=== PATIENT | female | born 1960 | race Caucasian/White ===

== ENCOUNTER 2021-10-13 14:28 | Emergency (ER) | payer BC, SELFPAY ==
--- NOTE | ~2021-10-13 | XR_ITS ---
EXAM: XR wrist RT w scaphoid HISTORY: medial LT wrist pain and swelling after a fall COMPARISON: None available FINDINGS: Decreased mineralization. Comminuted, intra-articular fracture of the proximal right fifth metacarpal with slight anteromedial dislocation of the proximal fifth metacarpal. No other fracture or dislocation. No lytic or blastic lesion. Joint spaces maintained. No erosion or periosteal change. Soft tissue swelling over the fracture, otherwise within normal limits. IMPRESSION: Comminuted, intra-articular fracture dislocation of the proximal right fifth metacarpal. Reviewed, dictated and finalized at location [facility]. IMPRESSION: Comminuted, intra-articular fracture dislocation of the proximal right fifth me tacarpal.
[2021-10-13 14:50] VITALS: BP 115/62; PULSE 82; RESP 20; TEMP 37.1; O2SAT 98
--- NOTE | 2021-10-13 15:02 | ED.GENADULT ---
HPI - General Adult General Chief complaint: Extremity Injury, Upper Stated complaint: right hand wrist injury Source: patient and family Mode of arrival: ambulatory Limitations: no limitations History of Present Illness HPI narrative: Christine was traveling through town when she fell at a restaurant on her right wrist. She had immediate pain and swelling but no other injuries. Related Data Allergies Allergy/AdvReac Type Severity Reaction Status Date / Time codeine AdvReac Headache Verified 10/13/21 15:04 promethazine [From Phenergan] AdvReac Other Verified 10/13/21 15:19 Review of Systems Constitutional: Constitutional: Reports no additional constitutional complaints Eyes: Eyes: Reports no additional eye complaints ENT: Reports system reviewed and no additional complaints, except as documented Cardiovascular: Cardiovascular: Reports no additional cardiovascular complaints Respiratory: Respiratory: Reports no additional respiratory complaints Gastrointestinal: Gastrointestinal: Reports no additional gastrointestinal complaints Genitourinary: Genitourinary: Reports no additional female genitourinary complaints Musculoskeletal: Musculoskeletal: Reports as per HPI Integumentary/Breasts: Skin/Breast: Reports system reviewed and no additional complaints, except as docu Neurologic: Reports system reviewed and no additional complaints, except as documented Psychiatric: Psychiatric: Reports no additional psychiatric complaints Endocrine: Endocrine: Reports no additional endocrine complaints Hematologic/Lymphatic: Hematologic/Lymphatic: Reports no additional hematologic/lymphatic complaints Allergic/Immunologic: Allergic/Immunologic: Reports no additional allergic/immunologic complaints Exam Const: General: no acute distress and alert Orientation/consciousness: patient oriented x3 HENMT: Head: normal to inspection Other: atraumatic Eyes: Conjunctivae: conjunctivae normal Pupils: Equal, round and reactive pupils present Neck: Neck: normal visual inspection Chest: Chest palpation & inspection: normal inspection of the chest Resp: Effort & Inspection: normal respiratory effort, not labored and not tachypneic Cardio: Rate: regular rate Skin: General skin exam: normal color Rashes: no rashes Neuro: General: patient oriented x3 and moves all extremities Extrem: Other: Right wrist was swollen and TTP. She can wiggle all fingers and has good capillary refill. Radial pulse intact. Course Course Emergency Course: Ordered morphine and radiographs EXAM: XR wrist RT w scaphoid HISTORY: medial LT wrist pain and swelling after a fall COMPARISON: None available FINDINGS: Decreased mineralization. Comminuted, intra-articular fracture of the proximal right fifth metacarpal with slight anteromedial dislocation of the proximal fifth metacarpal. No other fracture or dislocation. No lytic or blastic lesion. Joint spaces maintained. No erosion or periosteal change. Soft tissue swelling over the fracture, otherwise within normal limits. IMPRESSION: Comminuted, intra-articular fracture dislocation of the proximal right fifth metacarpal. She was placed in a splint and sling. She was instructed follow up with her PCP at home (near [place], [place]) and get a referral to a specialist. Vital Signs Vital signs: Vital Signs Temperature 98.7 F 10/13/21 14:50 Pulse Rate 82 10/13/21 14:50 Respiratory Rate 20 10/13/21 14:50 Blood Pressure 115/62 10/13/21 14:50 Pulse Oximetry 98 10/13/21 14:50 Temperature 98.7 F 10/13/21 16:09 Pulse Rate 84 10/13/21 16:09 Respiratory Rate 20 10/13/21 16:09 Blood Pressure 119/68 10/13/21 16:09 Pulse Oximetry 97 10/13/21 16:09 Medical Decision Making Vital Signs Vital Signs: Vital Signs Temperature 98.7 F 10/13/21 14:50 Pulse Rate 82 10/13/21 14:50 Respiratory Rate 20 10/13/21 14:50 Blood Pressure 115/62 10/13/21 14:50 Pulse O
[2021-10-13] MEDS: MORPHINE SULFATE (*CRX) 4 MG/ML INJ IM (15:11)
[2021-10-13 16:09] VITALS: BP 119/68; PULSE 84; RESP 20; TEMP 37.1; O2SAT 97
== END 2021-10-13 16:17 | disposition home or self-care (01) ==
PROVIDERS: Emergency Provider Family Medicine
DX: S62.91XA Unspecified fracture of right hand, initial encounter for closed fracture (principal); W19.XXXA Unspecified fall, initial encounter
CPT/HCPCS: 29125; 73110; 96372; 99284; A4565; J2270